=== PATIENT | female | born 1965 | race Two or more races ===

== ENCOUNTER 2022-03-15 08:05 | Outpatient (CLI) | payer OTHER | END 2022-03-15 08:17 | disposition home or self-care (01) | LOC: RX STUDY 08:05 | PROVIDERS: ATTEND Internal Medicine Gastroenterology | DX: R13.10 Dysphagia, unspecified (principal) ==

== ENCOUNTER 2022-08-20 05:20 | Day surgery (SDC) | payer OTHER ==
[~2022-08-20] VITALS: Ht 167.6 cm; Wt 104.3 kg
[~2022-08-20 05:20] MED LIST: CALCIUM PO; GABA PO; LIPITOR40 M1 PO; SYNTHROID112 MCG PO; ZETIA10 MG PO
[2022-08-20] MEDS ORDERED: CILOXAN5 ML OTIC (09:45)
[2022-08-20] MEDS ORDERED: CEPHALEXIN500 MG PO (09:46)
== END 2022-08-20 12:55 | disposition home or self-care (01) ==
LOC: CIR.AMB 05:20
PROVIDERS: ATTEND Otolaryngology Otology & Neurotology
DX: D44.7 Neoplasm of uncertain behavior of aortic body and other paraganglia (principal); H72.02 Central perforation of tympanic membrane, left ear; Z20.822 Contact with and (suspected) exposure to COVID-19; E78.5 Hyperlipidemia, unspecified; E03.9 Hypothyroidism, unspecified